=== PATIENT | female | born 1975 | race Two or more races ===

== ENCOUNTER 2020-10-07 07:44 | Outpatient (CLI) | payer OTHER | END 2020-10-07 08:00 | disposition home or self-care (01) | LOC: RAD 07:44 | DX: N60.01 Solitary cyst of right breast (principal); Z12.31 Encounter for screening mammogram for malignant neoplasm of breast; N64.59 Other signs and symptoms in breast; N64.4 Mastodynia; I10 Essential (primary) hypertension; M54.5 Low back pain; Z01.810 Encounter for preprocedural cardiovascular examination; E03.8 Other specified hypothyroidism; E78.89 Other lipoprotein metabolism disorders; E55.9 Vitamin D deficiency, unspecified; E11.51 Type 2 diabetes mellitus with diabetic peripheral angiopathy without gangrene; F17.200 Nicotine dependence, unspecified, uncomplicated ==

== ENCOUNTER 2020-10-07 10:12 | Outpatient (CLI) | payer OTHER | END 2020-10-07 10:25 | disposition home or self-care (01) | LOC: LAB 10:12 | PROVIDERS: ATTEND Internal Medicine | DX: E03.8 Other specified hypothyroidism (principal); I10 Essential (primary) hypertension; M54.5 Low back pain; Z01.810 Encounter for preprocedural cardiovascular examination; E78.89 Other lipoprotein metabolism disorders; E55.9 Vitamin D deficiency, unspecified; E11.51 Type 2 diabetes mellitus with diabetic peripheral angiopathy without gangrene; F17.200 Nicotine dependence, unspecified, uncomplicated; Z12.11 Encounter for screening for malignant neoplasm of colon; N93.8 Other specified abnormal uterine and vaginal bleeding; E78.49 Other hyperlipidemia; A50.1 Early congenital syphilis, latent; Z11.4 Encounter for screening for human immunodeficiency virus [HIV]; N39.0 Urinary tract infection, site not specified ==